=== PATIENT | male | born 1940 | race Asian ===

== ENCOUNTER 2019-10-04 19:04 | Emergency (ER) | payer MEDICAID ==
[~2019-10-04] VITALS: Ht 167.6 cm; Wt 54.9 kg
--- NOTE | 2019-10-04 19:35 | NUR ---
PT BIB HIS SON WITH A C/O DIZZINESS AND HIGH BP. PT DOES NOT SPEAK [place]. TAGALOG ONLY. PT IS ON THE MONITOR AND CONTINUOUS PULSE OX. PT'S GRANDSON IS AT THE BEDSIDE.
--- NOTE | 2019-10-04 19:40 | NUR ---
20G IV STARTED IN LAC. HYDRALYZINE HELD PT'S BP IS NOW 165/78.
[2019-10-04] MEDS ORDERED: hydrALAZINE HCL IV 20 MG VIAL ONE (19:48)
[2019-10-04 19:57] LABS: BASOPHILS % (AUTO) 0.4 % (0.0-2.0); EOSINOPHILS % (AUTO) 0.3 % (0.0-6.0); HEMATOCRIT 37 % (39-51); LYMPHOCYTES # (AUTO) 0.7 /CMM (0.8-4.8); LYMPHOCYTES % (AUTO) 9.7 % (20.0-44.0); MEAN CORPUSCULAR HGB CONC 33 g/dl (31.0-36.0); MEAN CORPUSCULAR VOLUME 90 fL (80-96); MONOCYTES # (AUTO) 0.2 /CMM (0.1-1.30); MONOCYTES % (AUTO) 3.5 % (2.0-12.0); NEUTROPHILS % (AUTO) 86.1 % (43.0-81.0); PLATELET COUNT (AUTO) 252 /CMM (150-450); RED BLOOD CELL COUNT(AUTO) 4.05 MIL/uL (4.5-6.0)
[2019-10-04] MEDS ORDERED: hydrALAZINE HCL IV 20 MG VIAL IV ONE (20:00)
[2019-10-04] MEDS ORDERED: IV NS 0.9% 500 ML BAG IV ONE (20:00)
--- NOTE | 2019-10-04 20:03 | NUR ---
AT THE BEDSIDE
[2019-10-04 20:10] LABS: CALCIUM, SERUM 8.8 mg/dL (8.5-10.1); CARBON DIOXIDE 28 mmol/L (21-32); CHLORIDE 101 mmol/L (98-107); CREATININE 1.2 mg/dL (0.6-1.3); GLUCOSE 172 mg/dL (74-106); POTASSIUM 4.2 mmol/L (3.5-5.1); SODIUM SERUM 136 mmol/L (136-145); UREA NITROGEN, BLOOD 20 mg/dL (7-18)
[2019-10-04 20:27] LABS: ALANINE AMINOTRANSFERASE 32 U/L (12-78); ALBUMIN 3.7 g/dL (3.4-5.0); ALKALINE PHOSPHATASE 63 U/L (46-116); ASPARTATE AMINOTRANSFERASE 26 U/L (15-37); BILIRUBIN,TOTAL 0.2 mg/dL (0.2-1.0); TOTAL PROTEIN, SERUM 7.5 g/dL (6.4-8.2)
[2019-10-04] MEDS ORDERED: AMLODIPINE BESYLATE 5 MG TABLET PO ONE (20:30)
[2019-10-04] MEDS ORDERED: AMLODIPINE BESYLATE 5 MG TABLET ONE (20:40)
--- NOTE | 2019-10-04 21:10 | NUR ---
IV removed. Catheter intact and site benign. Pressure and 4x4 applied to site. No bleeding noted. Patient discharged to home in stable condition. Written and verbal after care instructions given. Patient's Grandson verbalizes understanding of instruction AND RX. PT'S VSS. PT AMBULATED OUT WITH A SLOW STEADY GAIT.
[2019-10-04 21:11] VITALS: BP 158/77
== END 2019-10-04 21:11 | disposition home or self-care (01) ==
LOC: ER 19:09
DX: I10 Essential (primary) hypertension (principal); R42 Dizziness and giddiness
CPT/HCPCS: 36415; 80048; 80076; 84484; 85025; 93005; 99284; J0360; J7040